=== PATIENT | female | born 1995 | race Caucasian/White ===

== ENCOUNTER 2019-07-30 11:41 | Emergency (ER) | payer SELFPAY ==
[~2019-07-30] VITALS: Ht 172.7 cm; Wt 55.8 kg
[2019-07-30 11:48] VITALS: Ht 172.7 cm; Wt 55.8 kg
[2019-07-30 12:37] LABS: microscopic required? YES; urine erythrocyte NEGATIVE (NEGATIVE)
[2019-07-30 12:48] LABS: CALCIUM 8.6 mg/dL (8.5-10.1); CARBON DIOXIDE 28.4 mmol/L (21-32); CHLORIDE SERUM 105 mmol/L (98-107); CREATININE SERUM 0.7 mg/dL (0.6-1.0); GFR1 > 60 mL/min; GLUCOSE SERUM 123 mg/dL (74-106); SODIUM SERUM 141 mmol/L (136-145)
[2019-07-30 12:54] LABS: BASOPHIL % 0.4 % (0-2); PLATELET COUNT 219 x10^3mcL (130-400); RED CELL DISTRIBUTION WIDTH 11.8 % (11.5-14.5)
[2019-07-30 12:56] LABS: ALBUMIN 3.7 g/dL (3.4-5.0); ALKALINE PHOSPHATASE 51 U/L (46-116); ALT/SGPT 27 U/L (14-59); AST/SGOT 19 U/L (15-37); BILIRUBIN TOTAL 0.9 mg/dL (0.20-1.00); CHOLESTEROL 148 mg/dL (<200); HDL CHOLESTEROL 75 mg/dL (40-60); LIPASE 159 IU/L (73-393); TOTAL PROTEIN, SERUM 6.8 g/dL (6.4-8.2); TRIGLYCERIDES 39 mg/dL (<150)
[2019-07-30 13:01] LABS: FREE T4 0.81 ng/dL (0.76-1.46); FREE THYROXINE INDEX 2.1 ug/dL (1.4-4.5); T4(THYROXINE) 6.3 ug/dL (4.7-13.3)
[2019-07-30 13:11] LABS: T3 TOTAL 1.01 ng/mL
[2019-07-30 13:37] LABS: AMPHETAMINE QUAL UR NONE DETECTED (See below)
[2019-07-30 13:41] VITALS: BP 115/77
== END 2019-07-30 13:41 | disposition home or self-care (01) ==
LOC: ED 11:41
PROVIDERS: Specialist
DX: R07.89 Other chest pain (principal); F43.0 Acute stress reaction; N39.0 Urinary tract infection, site not specified; J45.909 Unspecified asthma, uncomplicated
CPT/HCPCS: 36415; 83880; 84439; Q0092